=== PATIENT | male | born 1985 | race Caucasian/White ===

== ENCOUNTER 2021-07-31 09:21 | Emergency (ER) | payer OTHER ==
[~2021-07-31 09:21] MED LIST: FLEXERIL10 MG PO
[2021-07-31 10:28] LABS: BASOPHIL 0.4 % (0-2); EOSINOPHIL 10.6 % (0-5); HCT 47.8 % (42.0-52.0); HGB 15.8 g/dl (13.2-18.0); MCH 30.9 pg (25.0-31.0); MCHC 33.1 g/dL (32.0-36.0); MCV 93.4 fL (78.0-100.0); MONOCYTE 9.8 % (0-12); MPV 11.1 fL (6.0-9.5); NEUTROPHIL 48.4 % (41-80); NRBC 0; PLT 189 K/uL (150-400); RBC 5.12 M/uL (4.70-6.00); RDW 13.2 % (11.5-14.0)
[2021-07-31 10:29] LABS: LYMPHOCYTE 30.4 % (15-48)
[2021-07-31 10:48] LABS: ALBUMIN 4.5 g/dL (3.4-5.0); BILIRUBIN - TOTAL 0.2 mg/dL (0.2-1.0); BUN/CREAT RATIO (CALC) 14.7 RATIO; CREATININE 1.09 mg/dL (0.67-1.17); GLOBULIN (CALCULATION) 4.1 g/dL; POTASSIUM 4.5 mmol/L (3.5-5.1); TOTAL PROTEIN 8.6 g/dL (6.4-8.2)
[2021-07-31 12:24] LABS: BILIRUBIN 1+ mg/dL (NEGATIVE); BLOOD TRACE-INTACT Ery/uL (NEGATIVE); CLARITY CLEAR (CLEAR); COLOR YELLOW (YELLOW); GLUCOSE (U) NORMAL (NORMAL); LEUKOCYTES NEGATIVE Leu/uL (NEGATIVE); NITRITE NEGATIVE (NEGATIVE); PROTEIN NEGATIVE (NEGATIVE); SPECIFIC GRAVITY >=1.030 (1.001-1.030); UROBILINOGEN 0.2 mg/dL (0.2-1.0)
[2021-07-31 12:37] LABS: MUCOUS MODERATE
[2021-07-31 12:38] LABS: BACTERIA TRACE; URINARY RBC RARE
== END 2021-07-31 14:15 | disposition home or self-care (01) ==
LOC: FER 09:21
PROVIDERS: Emergency Medicine
DX: K92.1 Melena (principal)
CPT/HCPCS: 36415; 74022; 80053; 81001; 83605; 83690; 85025